=== PATIENT | male | born 1950 | race African-American/Black ===

== ENCOUNTER 2017-02-04 16:09 | Observation (INO) | payer MEDICARE ==
[~2017-02-04] VITALS: Ht 182.9 cm; Wt 102.0 kg
--- NOTE | 2017-02-04 16:36 | NUR ---
PT TO ROOM W/STEADY GAIT.
--- NOTE | 2017-02-04 17:30 | NUR ---
DOZING AT INTERVALS. AWAITING MD CEVALLOS
--- NOTE | 2017-02-04 18:19 | NUR ---
TO BATHROOM WITH STEADY GAIT. IV IN PLACE. AWAITING LAB RESULTS
[2017-02-04 18:20] LABS: HEMOGLOBIN 14.6 g/dl (14.0-18.0); IMMATURE GRANULOCYTES 0.3 % (0.0-1.0); MEAN CELL VOLUME 83.5 fL CALC (80.0-100.0); MEAN CORPUSCULAR HGB 27.7 pG CALC (26.0-32.0); MEAN CORPUSCULAR HGB CONC 33.2 g/L CALC (32.0-36.0); NEUT# 4.18 thou/uL (1.82-7.42); RED BLOOD COUNT 5.27 mill/uL (4.70-6.10); RED CELL DISTRI WIDTH 12.3 % (11.5-15.5)
[2017-02-04 18:22] LABS: URINE BILIRUBIN - DIPSTICK NEGATIVE (NEGATIVE); URINE BLOOD DIPSTICK NEGATIVE (NEGATIVE); URINE CLARITY CLEAR; URINE COLOR YELLOW; URINE GLUCOSE - DIPSTICK >=1000 mg/dL (NEGATIVE); URINE KETONE 15 mg/dL (NEGATIVE); URINE LEUK ESTERASE NEGATIVE (NEGATIVE); URINE NITRITE - DIPSTICK NEGATIVE (Negative); URINE PROTEIN - DIPSTICK NEGATIVE (NEG-TRACE); URINE UROBILINOGEN - DIPSTICK 0.2 E.U./dL (0.2)
[2017-02-04 18:44] LABS: ALBUMIN 4.5 g/dL (3.2-5.0); ALKALINE PHOSPHATASE 103 u/l (38-126); ANION GAP 18 (6-22 (CALC)); BUN 16 mg/dL (8-23); BUN/CREATININE RATIO 17 (12-20 (CALC)); CALCIUM 9.6 mg/dL (8.4-10.2); CARBON DIOXIDE 25 mmol/l (22-30); CHLORIDE 99 mmol/l (95-108); GFR > 60 ML/MIN (>=60 (CALC)); GFR FOR AFR.AMER. > 60 ML/MIN (>=60 (CALC)); GLUCOSE 415 mg/dL (82-115); POTASSIUM 4.1 mmol/l (3.5-5.1); SGOT/AST 18 u/l (19-48); SGPT/ALT 46 u/l (11-66); SODIUM 138 mmol/l (137-146); TOTAL PROTEIN 8.5 g/dL (6.3-8.2)
--- NOTE | 2017-02-04 18:46 | NUR ---
LAB RESULTS RETURNING.. (DR TEMPLE) AT BEDSIDE.
--- NOTE | 2017-02-04 19:00 | NUR ---
REPORT RECEIVED. CARE ASSUNED. PATIENT RESTING ON STRETCHER, FRIEND AT BEDSIDE.
--- NOTE | 2017-02-04 19:35 | NUR ---
PATIENT MEDICATED WITH INSULIN ORDERED. WILL MONITOR BLOOD SUGAR FOR EFFECT.
--- NOTE | 2017-02-04 19:55 | NUR ---
PATIENT AWARE OF PLANS TO ADMIT. AWAITING ORDERS AND ROOM ASSIGNMENT.
--- NOTE | 2017-02-04 20:45 | NUR ---
BLOOD SUGAR 262. PATIENT DENEIS ANY COMPLAINTS AT PRESENT.
--- NOTE | 2017-02-04 21:02 | NUR ---
REPORT ATTEMPTED. NURSE TO CALL BACK
--- NOTE | 2017-02-04 21:07 | NUR ---
REPORT TO GAYE. PATIENT READIED FOR TRANSPORT TO FLOOR.
[2017-02-04 21:15] VITALS: BP 195/88
--- NOTE | 2017-02-04 21:30 | NUR ---
PATIENT ADMITTED FROM ER VIA WHEELCHAIR WITH ER STAFF IN ATTENDANCE. PATIENT TO STANDING SCALE AND THEN TO BED. PATIENT IS ALERT AND ORIENTEDX3. PATIENT WITH NO COMPLAINTS AT THIS TIME.PATIENT WITH IV SITE TO LEFT AC-IVF NS HUNG AND INFUSING AT 125CC/HR. SITE APPEARS HEALTHY AT THIS TIME. [id number]. PATIENT PROVIDED WITH TURKEY SANDWICH, DIET PUDDING AND DIET COLA. PATIENT STATES THAT HE HAS BEEN HAVING EXTREME THRIST, FREQUENT URINATION, AND BLURRED EYES FOR SEVERAL DAYS. DENIES ANY PMH. DENIES ANY MEDS. DENIES ANY ALLERIES. PATIENT ORIENTED TO ROOM AND SURROUNDINGS. INSTRUCTED ON USE OF NURSE CALL LIGHT SYSTEM AND TV REMOTE. CALL LIGHT IN REACH. WILL CONT TO MONITOR.
--- NOTE | 2017-02-04 22:45 | NUR ---
PATIENT REMAINS WITH HIGH BP-DR. RENTERIA CALLED AND NEW ORDERS RECIEVED. WILL ADMINISTER WHEN PROFILED ON EMAR. WILL CONT TO MONITOR.
--- NOTE | 2017-02-04 23:45 | NUR ---
MEDICATED WITH LEVEMIR 10UNITS AND LISINOPRIL 10MG ORDERED. PATIENT RESTING IN BED AT THIS TIME WITH NO COMPLAINTS. WILL CONT TO MONITOR.
[2017-02-05 00:21] VITALS: BP 179/71
--- NOTE | 2017-02-05 04:06 | NUR ---
PATIENT APPEARS SLEEPING AT THIS TIME POSITIONED ON HIS SIDE. IVF PATENT AND INFUSING AT 125CC/HR. CALL LIGHT IN REACH. WILL CONT TO MONITOR.
[2017-02-05 04:32] VITALS: BP 151/61
[2017-02-05 06:06] LABS: CHOLESTEROL HDL RATIO 5.1 (<4.4 (CALC))
[2017-02-05 07:29] VITALS: BP 144/69
[2017-02-05 07:33] VITALS: BP 144/69
--- NOTE | 2017-02-05 07:36 | NUR ---
REPORT RECEIVED FROM GEOVANNI HUIZAR. PT SITTING ON SIDE OF BED. DENIES PAIN. REPORTING OF CONCERNS ENCOURAGED. PLAN OF CARE DISCUSSED. PT EDUCATED ON DISEASE PROCESS, DIABETES AND HTN, AND MEDICATIONS PRESCRIBED. PT STATES UNDERSTANDING.
[2017-02-05] MEDS ORDERED: ATORVASTATIN CA10 MG PO (14:04)
[2017-02-05] MEDS ORDERED: ASPIRIN CHEWABL81 MG PO (14:04)
[2017-02-05] MEDS ORDERED: SYNJARDY PO (14:04)
[2017-02-05] MEDS ORDERED: LISINOPRIL20 M1 PO (14:04)
--- NOTE | 2017-02-05 14:53 | NUR ---
Discharge instructions given. Patient verbalizes understanding of same. Discharged in stable condition via Ambulatory to Home with family. All belongings sent with pt.
== END 2017-02-05 15:02 | disposition home or self-care (01) ==
LOC: ED 16:09 → ED-I 19:10 → ED 20:03 → MS2 20:04
PROVIDERS: Emergency Medicine; ADMIT Internal Medicine; ATTEND Internal Medicine
DX: E11.65 Type 2 diabetes mellitus with hyperglycemia (principal); I10 Essential (primary) hypertension; E78.5 Hyperlipidemia, unspecified
CPT/HCPCS: G0378

== ENCOUNTER 2017-02-09 08:40 | Observation (INO) | payer MEDICARE ==
[~2017-02-09] VITALS: Ht 182.9 cm; Wt 98.0 kg
[~2017-02-09 08:40] MED LIST: ASPIRIN CHEWABL81 MG PO; ATORVASTATIN CA10 MG PO; LISINOPRIL20 M1 PO; SYNJARDY PO
[2017-02-09 09:26] LABS: HEMATOCRIT 45.1 % (39.0-50.0); HEMOGLOBIN 14.9 g/dl (14.0-18.0); IMMATURE GRANULOCYTES 0.3 % (0.0-1.0); MEAN CELL VOLUME 84.6 fL CALC (80.0-100.0); NEUT# 3.71 thou/uL (1.82-7.42); RED BLOOD COUNT 5.33 mill/uL (4.70-6.10); RED CELL DISTRI WIDTH 12.8 % (11.5-15.5)
[2017-02-09 09:36] LABS: ALBUMIN 4.5 g/dL (3.2-5.0); ALKALINE PHOSPHATASE 87 u/l (38-126); ANION GAP 20 (6-22 (CALC)); BILIRUBIN, TOTAL 0.9 mg/dL (0.0-1.4); BUN 19 mg/dL (8-23); BUN/CREATININE RATIO 21 (12-20 (CALC)); CALCIUM 9.4 mg/dL (8.4-10.2); CARBON DIOXIDE 20 mmol/l (22-30); CHLORIDE 102 mmol/l (95-108); CREATININE 0.9 mg/dL (0.7-1.3); GFR > 60 ML/MIN (>=60 (CALC)); GFR FOR AFR.AMER. > 60 ML/MIN (>=60 (CALC)); GLUCOSE 194 mg/dL (82-115); POTASSIUM 4.8 mmol/l (3.5-5.1); SGOT/AST 49 u/l (19-48); SGPT/ALT 53 u/l (11-66); SODIUM 138 mmol/l (137-146); TOTAL PROTEIN 8.8 g/dL (6.3-8.2)
[2017-02-09 09:48] LABS: MYOGLOBIN 125 ng/mL (0 - 121)
[2017-02-09 10:51] LABS: URINE BILIRUBIN - DIPSTICK NEGATIVE (NEGATIVE); URINE BLOOD DIPSTICK NEGATIVE (NEGATIVE); URINE CLARITY CLEAR; URINE COLOR YELLOW; URINE GLUCOSE - DIPSTICK >=1000 mg/dL (NEGATIVE); URINE KETONE 40 mg/dL (NEGATIVE); URINE LEUK ESTERASE NEGATIVE (NEGATIVE); URINE NITRITE - DIPSTICK NEGATIVE (Negative); URINE PROTEIN - DIPSTICK NEGATIVE (NEG-TRACE); URINE SPECIFIC GRAVITY 1.025; URINE UROBILINOGEN - DIPSTICK 0.2 E.U./dL (0.2)
[2017-02-09 11:50] VITALS: BP 187/78
[2017-02-09 15:21] VITALS: BP 157/66
[2017-02-09 18:45] VITALS: BP 169/63
[2017-02-09 21:29] VITALS: BP 174/70
[2017-02-09 23:18] VITALS: BP 155/78
[2017-02-10 03:20] VITALS: BP 147/65
[2017-02-10 05:45] LABS: HEMATOCRIT 42.2 % (39.0-50.0); HEMOGLOBIN 13.9 g/dl (14.0-18.0); IMMATURE GRANULOCYTES 0.2 % (0.0-1.0); MEAN CELL VOLUME 85.8 fL CALC (80.0-100.0); MEAN CORPUSCULAR HGB 28.3 pG CALC (26.0-32.0); MEAN CORPUSCULAR HGB CONC 32.9 g/L CALC (32.0-36.0); NEUT# 3.24 thou/uL (1.82-7.42); RED BLOOD COUNT 4.92 mill/uL (4.70-6.10); RED CELL DISTRI WIDTH 12.9 % (11.5-15.5)
[2017-02-10 05:49] LABS: ANION GAP 17 (6-22 (CALC)); BUN 20 mg/dL (8-23); BUN/CREATININE RATIO 23 (12-20 (CALC)); CALCIUM 9.2 mg/dL (8.4-10.2); CARBON DIOXIDE 24 mmol/l (22-30); CHLORIDE 102 mmol/l (95-108); CREATININE 0.9 mg/dL (0.7-1.3); GFR > 60 ML/MIN (>=60 (CALC)); GFR FOR AFR.AMER. > 60 ML/MIN (>=60 (CALC)); GLUCOSE 163 mg/dL (82-115); POTASSIUM 4.4 mmol/l (3.5-5.1); SODIUM 138 mmol/l (137-146)
[2017-02-10 07:33] VITALS: BP 153/74; BP 157/75
[2017-02-10 07:36] VITALS: BP 141/74
[2017-02-10 11:40] VITALS: BP 164/67
[2017-02-10] MEDS ORDERED: TRAMADOL HCL50 MG PO (13:29)
== END 2017-02-10 13:49 | disposition home or self-care (01) ==
LOC: ED 08:40 → ED-I 10:34 → ED 11:11 → MS2 11:12
PROVIDERS: Emergency Medicine; ADMIT Internal Medicine; ATTEND Internal Medicine
DX: R55 Syncope and collapse (principal); I10 Essential (primary) hypertension; E11.9 Type 2 diabetes mellitus without complications; E78.5 Hyperlipidemia, unspecified; K59.00 Constipation, unspecified; M25.511 Pain in right shoulder; S00.83XA Contusion of other part of head, initial encounter; W18.11XA Fall from or off toilet without subsequent striking against object, initial encounter; Y92.002 Bathroom of unspecified non-institutional (private) residence as the place of occurrence of the external cause; Z79.84 Long term (current) use of oral hypoglycemic drugs